=== PATIENT | female | born 1960 | race Caucasian/White ===

== ENCOUNTER → 2016-06-12 | Outpatient (CLI) | payer OTHER ==
--- NOTE | 2016-06-13 20:35 | MA ---
Screening Digital Mammogram With Tomosynthesis and iCAD Indication: Routine screening. Two sisters diagnosed with breast cancer. Technique: Standard digital cephalocaudal projections were obtained. Digital breast tomosynthesis wa s performed in the mediolateral oblique projection with reconstruction at 1.0 mm slice thickness. Com posite mediolateral oblique views were reconstructed. This examination was processed by the iCAD comp uter-aided detection system. Comparison: May 2015, June 2014, June 2013, and May 2012. Breast Density: Type B. Findings: CAD was reviewed. No suspicious microcalcifications, mass, or architectural distortion. Impression: Negative mammogram. BI-RADS: 1 - Negative. Recommendation: Routine screening is recommended in one year. [facility] will send a result letter to the patient. Negative mammography should not preclude additional workup of a clinically suspicious finding. The patient's information is entered into a reminder system with a target due date for her next mammo gram.
== END ==
LOC: FIMAGING 09:07
PROVIDERS: ATTEND Internal Medicine Hematology & Oncology
DX: Z12.31 Encounter for screening mammogram for malignant neoplasm of breast (principal); Z80.3 Family history of malignant neoplasm of breast
CPT/HCPCS: G0202

== ENCOUNTER → 2016-06-12 | Outpatient (CLI) | payer OTHER ==
--- NOTE | 2016-06-12 10:09 | DX ---
PA and Lateral Chest June 12, 2016 Indication: Cough. Comparison: None. Findings: The lungs are well aerated and clear. No pneumothorax, consolidation, or effusion. Heart si ze normal. Impression: Normal. No pneumonia or explanation for cough.
== END ==
LOC: FIMAGING 09:39
PROVIDERS: ATTEND Internal Medicine Hematology & Oncology
DX: R05 Cough (principal)

== ENCOUNTER → 2017-05-05 | Outpatient (CLI) | payer OTHER ==
[~2017-05-05] MED LIST: GADOBUTROL 10 ML VIAL IVP ONE
== END ==
LOC: FIMAGING 09:50
PROVIDERS: ATTEND Internal Medicine Hematology & Oncology
DX: Z15.01 Genetic susceptibility to malignant neoplasm of breast (principal)
CPT/HCPCS: 0159T; A9585; C8908

== ENCOUNTER → 2017-10-21 | Outpatient (CLI) | payer OTHER | LOC: FIMAGING 14:44 | PROVIDERS: ATTEND Otolaryngology | DX: J32.8 Other chronic sinusitis (principal) ==

== ENCOUNTER → 2018-06-14 | Outpatient (CLI) | payer OTHER | LOC: FIMAGING 14:40 | PROVIDERS: ATTEND Internal Medicine Hematology & Oncology | DX: Z15.01 Genetic susceptibility to malignant neoplasm of breast (principal); R92.8 Other abnormal and inconclusive findings on diagnostic imaging of breast | CPT/HCPCS: A9585; C8908 ==

== ENCOUNTER 2018-08-25 09:22 | Outpatient (CLI) | payer OTHER ==
[~2018-08-25 09:22] MED LIST changes: +FLUMAZENIL 0.5 MG/5 ML MDV IVP PRN; -GADOBUTROL 10 ML VIAL IVP ONE; +MEPERIDINE 25 MG/ML SYR IVP PRN; +MIDAZOLAM 2 MG/2 ML VIAL IVP PRN; +NALOXONE HCL 0.4 MG/ML INJ IVP PRN; +NS 1,000 ML IV SCH; +fentaNYL 100 MCG/2 ML INJ IVP PRN
[2018-08-25] MEDS ORDERED: NALOXONE HCL 0.4 MG/ML INJ IVP PRN (09:33)
[2018-08-25] MEDS ORDERED: FLUMAZENIL 0.5 MG/5 ML MDV IVP PRN (09:33)
[2018-08-25] MEDS ORDERED: MIDAZOLAM 2 MG/2 ML VIAL IVP PRN (09:33)
[2018-08-25] MEDS ORDERED: fentaNYL 100 MCG/2 ML INJ IVP PRN (09:33)
[2018-08-25] MEDS ORDERED: GADOBUTROL 10 ML VIAL IVP ONE (09:42)
[2018-08-25] MEDS ORDERED: NS 1,000 ML IV SCH (09:45)
[2018-08-25] MEDS ORDERED: LIDOCAINE 1% 5 ML SDV ONE (09:59)
[2018-08-25] MEDS ORDERED: BUPIVACAINE 0.5% 30 ML SDV ONE (09:59)
[2018-08-25] MEDS ORDERED: MIDAZOLAM 2 MG/2 ML VIAL ONE (10:27)
[2018-08-25] MEDS ORDERED: NALOXONE HCL 0.4 MG/ML INJ ONE (10:27)
[2018-08-25] MEDS ORDERED: fentaNYL 100 MCG/2 ML INJ ONE (10:27)
[2018-08-25] MEDS ORDERED: FLUMAZENIL 0.5 MG/5 ML MDV IVP ONE (10:27)
[2018-08-25 10:36] LABS: INR 0.97 (0.83-1.16); PROTIME(PATIENT) 12.5 SEC (12.0-15.0)
--- NOTE | 2018-08-25 10:37 | PDGENHP ---
History & Physical Chief Complaint: abnl breast MRI Cardiorespiratory Assessment: RRR, clear
--- NOTE | 2018-08-25 10:37 | PDPROPOC ---
Sedation Plan of Care Sedation Plan of Care: vital signs stable, mental status noted, patient educated of risks, benefits, alternatives, patient can tolerate sedation ASA Classification: ASA 1 Planned drugs: fentanyl, midazolam Mallampati Score: Class 2 Mallampati Reference Image: Patient passed 3-3-2 rule?: Yes
[2018-08-25] MEDS ORDERED: ACETAMINOPHEN 325 MG TAB PO PRN (11:43)
[2018-08-25] MEDS ORDERED: ONDANSETRON 4 MG/2 ML VIAL IVP PRN (11:43)
[2018-08-25 13:35] VITALS: BP 142/98
== END 2018-08-25 12:50 | disposition home or self-care (01) ==
LOC: FIMAGING 09:22
PROVIDERS: ATTEND Internal Medicine Hematology & Oncology
PROC: 0HBT3ZX Excision of Right Breast, Percutaneous Approach, Diagnostic (ICD-10-PCS; principal; 2018-08-25)
DX: R92.8 Other abnormal and inconclusive findings on diagnostic imaging of breast (principal); Z15.01 Genetic susceptibility to malignant neoplasm of breast; Z80.3 Family history of malignant neoplasm of breast; C50.111 Malignant neoplasm of central portion of right female breast
CPT/HCPCS: A9585; J2250; J2310; J3010

== ENCOUNTER → 2018-09-22 | Outpatient (CLI) | payer OTHER | LOC: FIMAGING 14:34 | PROVIDERS: ATTEND Internal Medicine Hematology & Oncology | DX: C50.811 Malignant neoplasm of overlapping sites of right female breast (principal) ==

== ENCOUNTER 2018-10-27 08:17 | Observation (INO) | payer OTHER | END 2018-10-28 10:50 | disposition home or self-care (01) | LOC: F3N 08:17 → F1N 08:40 ==